=== PATIENT | male | born 1985 | race Caucasian/White ===

== ENCOUNTER → 2018-01-22 08:00 | Outpatient (CLI) | payer OTHER, SELFPAY ==
--- NOTE | 2018-01-22 | DI.RAD.S_ITS ---
PROCEDURE: FL SHOULDER INJECTION MR/CT LT INDICATIONS: N TECHNIQUE: The indications, alternatives, benefits, risks, and complications of the procedure were explained to the patient. Written informed consent was obtained and placed in the chart. The shoulder was examined fluoroscopically and a site for needle placement chosen for entry into the glenohumeral joint from an anterior approach. The skin was prepped and draped in a sterile fashion, and 1% lidocaine infiltrated from skin down to joint capsule. A spinal needle was inserted into the glenohumeral joint, and a small amount of iodinated contrast media injected to confirm intra-articular placement of the needle tip. This was followed by approximately 12 mL dilute solution of a gadolinium containing MR contrast agent. The needle was removed and a dressing was applied. The patient was given postprocedural instructions and sent to the MR suite for MR imaging. FINDINGS: A single fluoroscopic spot image demonstrates intra-articular location of injected iodinated contrast. IMPRESSION: Successful fluoroscopically guided administration of dilute Gadolinium solution into the shoulder joint for MR arthrogram. Dictated by: Mike Washington M.D. on 01/22/2018 at 8:54 Approved by: Mike Washington M.D. on 01/22/2018 at 8:54
--- NOTE | 2018-01-22 | DI.MRI.S_ITS ---
PROCEDURE: MR SHOULDER LT W CON INDICATIONS: PARESTHESIA OF SKIN PAIN IN LEFT SHOULDER TECHNIQUE: After the administration of 12 mL of dilute intra-articular Gadolinium contrast, oblique coronal T1 and T2 spin echo with fat saturation, oblique sagittal T1 spin echo with and without fat saturation, oblique sagittal T2 fast spin echo with fat saturation, axial T1 spin echo with fat saturation through the shoulder. COMPARISON: None. FINDINGS: Image quality: Diagnostic. Rotator cuff: No full-thickness or high-grade partial-thickness tears the rotator cuff is evident. There is supraspinatus and infraspinatus tendinopathy without significant tendon. The subscapularis and teres minor tendons are intact. No significant atrophy is evident involving the rotator cuff muscles. Bones and bursae: No acute fracture, dislocation, suspicious osseous lesion or evidence of avascular necrosis is identified involving the osseous structures of the left shoulder. There is mild posterior subluxation of the humeral head with respect to the glenoid. Mild degenerative changes of the glenohumeral joint are present. There is adequate distention of the glenohumeral joint with the injected contrast. This contrast does not extend into the subacromial subdeltoid bursa. There may be early degenerative changes of the acromioclavicular joint. No significant fluid is contained within the subacromial subdeltoid bursa. Capsule and soft tissues: There is a moderate-sized posterior labral tear identified extending from at least the 1 o'clock position to the 5 o'clock position. No detached fragments are identified. The long head of the biceps tendon is positioned within the bicipital groove. Thickening and slight increased signal involving the intra-articular portion of this tendon is present, best appreciated near the biceps anchor. There is fluid extending beyond the inferior joint capsule, compatible with a small tear. The middle and superior glenohumeral ligaments are grossly intact. IMPRESSION: 1. Mild supraspinatus and infraspinatus tendinopathy without significant change. 2. Small to moderate-sized posterior labral tear. 3. Focal tendinopathy involving the intra-articular portion of the biceps tendon. 4. Mild degenerative changes of the glenohumeral joint. 5. 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 Dictated by: Lucio Paige M.D. on 01/22/2018 at 13:51 Approved by: Lucio Paige M.D. on 01/22/2018 at 13:54
== END ==
PROVIDERS: Visit Provider Family Medicine
DX: S43.402A Unspecified sprain of left shoulder joint, initial encounter (principal); M19.012 Primary osteoarthritis, left shoulder; M75.92 Shoulder lesion, unspecified, left shoulder; R20.2 Paresthesia of skin; M25.512 Pain in left shoulder
CPT/HCPCS: 23350; 73222; 77002